=== PATIENT | female | born 1930 | race Caucasian/White ===

== ENCOUNTER 2017-01-05 07:47 | Emergency (ER) | payer MEDICARE, OTHER ==
[~2017-01-05] VITALS: Ht 165.1 cm; Wt 84.0 kg
[2017-01-05 07:57] VITALS: Ht 165.1 cm; Wt 84.0 kg
[2017-01-05] MEDS ORDERED: SOD CHLORIDE 0.9% 500 ML IV STA (08:00)
[2017-01-05] MEDS ORDERED: KETOROLAC 15 MG INJ IV STA (08:00)
[2017-01-05] MEDS ORDERED: LORAZEPAM 2 MG INJ IV ONE (08:00)
--- NOTE | 2017-01-05 09:10 | ERD ---
ER Documentation Chief Complaint Chief Complaint pt gagan MONTAGUE from [facility] with c/o fall out of wheelchair HPI 86-year-old woman brought in by EMS after falling out of her wheelchair [place] at the halfway. She fell onto her low back but denies head or neck injury , no loss of consciousness, no chest pain or shortness of breath. Patient cannot ambulate independently and uses a wheelchair. She was transported here by EMS without further complications. ROS All systems reviewed and are negative except as per history of present illness. Medications Home Meds Active Scripts Alprazolam* (Xanax*) 0.5 Mg Tab, 0.5 MG PO TID for ANXIETY, #12 TAB Prov:VINEET MARCIAL MD 01/05/17 Cephalexin* (Keflex*) 500 Mg Capsule, 500 MG PO QID for 5 Days, #19 CAP Prov:VINEET MARCIAL MD 01/05/17 Reported Medications Lactobacillus Combo No.11 (Probiotic) 1 Each Cap.sprink, 1 CAP PO DAILY, CAP 01/05/17 Losartan Potassium* (Losartan Potassium*) 25 Mg Tablet, 25 MG PO DAILY, TAB 01/05/17 Lidocaine (Lidoderm) 1 Each Adh..patch, 1 EACH TP DAILY 01/05/17 Hydrochlorothiazide* (Hydrochlorothiazide*) 25 Mg Tab, 25 MG PO DAILY, #30 TAB 01/05/17 Cyanocobalamin* (Vitamin B12*) 500 Mcg Tab, 1000 MCG PO DAILY, TAB 01/05/17 Cholecalciferol* (Vitamin D3*) 1,000 Unit Tablet, 1000 UNIT PO DAILY, TAB 01/05/17 Ascorbic Acid* (Vitamin C*) 500 Mg Capsule.sa, 500 MG PO DAILY, CAP 01/05/17 Allergies Allergies: Coded Allergies: Celecoxib (Verified Allergy, Mild, 04/02/08) Rofecoxib (Verified Allergy, Mild, 04/02/08) PMhx/Soc Anxiety, dementia, Alzheimer's disease, arthritis Hx Alcohol Use: No Hx Substance Use: No Hx Tobacco Use: No Smoking Status: Never smoker FmHx Family History: No diabetes Physical Exam Vitals Vital Signs Date Time Temp Pulse Resp B/P Pulse Ox O2 Delivery O2 Flow Rate FiO2 01/05/17 11:00 98.0 82 16 110/93 97 01/05/17 10:35 98.9 84 16 136/70 97 01/05/17 07:57 98.9 82 16 148/89 97 Physical Exam GENERAL: Well-developed, well-nourished, anxious, afebrile HEENT: Dry mucous membranes, pink conjunctiva, no cervical spine tenderness or step-off deformities, no goiter, no jaundice or icterus, extraocular movements intact without pain. No submandibular induration, and no pharyngeal erythema NEURO: Alert and oriented 3, cranial nerves II through XII intact bilaterally, pupils equal round reactive to light, no focal deficits or facial asymmetry, sensation intact distally Strength 5/5 in upper and lower extremities bilaterally CARDIAC: Regular rate and rhythm, no murmurs rubs or gallops LUNGS: Clear bilaterally no wheezing crackles or stridor ABDOMEN: Soft nontender, no guarding, no rigidity, no rebound, no psoas sign no obturator sign. SKIN: Warm and dry to touch, no abrasions, superficial clean appearing dry ulcer to the pilonidal dimple, superficial without discharge EXTREMITIES: No clubbing cyanosis or edema, calves are bilaterally symmetrical, no Homans sign, no popliteal cord sign. Distal pulses equal and bilateral PSYCH: Anxious Result Diagram: 01/05/17 0820 01/05/17 0820 Results 24 hrs Laboratory Tests Test 01/05/17 08:20 White Blood Count 8.510^3/ul Red Blood Count 4.1210^6/ul Hemoglobin 12.4g/dl Hematocrit 39.4% Mean Corpuscular Volume 95.6fl Mean Corpuscular Hemoglobin 30.1pg Mean Corpuscular Hemoglobin Concent 31.5g/dl Red Cell Distribution Width 13.1% Platelet Count 90203^3/UL Mean Platelet Volume 10.7fl Neutrophils % 70.7% Lymphocytes % 20.5% Monocytes % 7.5% Eosinophils % 0.5% Basophils % 0.4% Nucleated Red Blood Cells % 0.0/100WBC Neutrophils # 6.010^3/ul Lymphocytes # 1.710^3/ul Monocytes # 0.610^3/ul Eosinophils # 0.010^3/ul Basophils # 0.010^3/ul Nucleated Red Blood Cells # 0.010^3/ul Urine Color YELLOW Urine Clarity SLIGHTLY CLOUDY Urine pH 5.0 Urine Specific [place] 1.024 Urine Ketones TRACEmg/dL Urine Nitrite NEGATIVEmg/dL Urine Bilirubin NEGATIVEmg/dL Urine Urobilinogen NEGATIVEmg/dL Urine Leukocyte Esterase 1+Mo/ul Urine Microscopic RBC > 182/HPF Urine Microscopic WBC 6/HPF Urine Squamous Epithelial Cells FEW/HPF Urine Bacteria FEW/HPF Urine Mucus FEW/HPF Urine Hemoglobin 3+mg/dL Urine Glucose NEGATIVEmg/dL Urine Total Protein NEGATIVEmg/dl Sodium Level 144mmol/L Potassium Level 4.4mmol/L Chloride Level 109mmol/L Carbon Dioxide Level 23mmol/L Anion Gap 16 Blood Urea Nitrogen 37mg/dl Creatinine 1.69mg/dl Glucose Level 141mg/dl Calcium Level 9.0mg/dl Total Bilirubin 0.2mg/dl Direct Bilirubin 0.00mg/dl Indirect Bilirubin 0.2mg/dl Aspartate Amino Transf (AST/SGOT) 23IU/L Alanine Aminotransferase (ALT/SGPT) 31IU/L Alkaline Phosphatase 63IU/L Total Protein 6.9g/dl Albumin 4.0g/dl Globulin 2.90g/dl Albumin/Globulin Ratio 1.37 Lipase 125U/L Current Medications Medications (Trade) Dose Ordered Sig/Kamila Route PRN Reason Start Time Stop Time Status Last Admin Dose Admin Sodium Chloride (NS) 500 ml @ 500 mls/hr Q1H STAT IV 01/05/17 08:00 01/05/17 08:59 DC 01/05/17 08:20 Ketorolac Tromethamine (Toradol) 15 mg ONCE STAT IV 01/05/17 08:00 01/05/17 08:01 DC 01/05/17 08:22 Lorazepam (Ativan) 1 mg ONCE ONCE IV 01/05/17 08:00 01/05/17 08:01 DC 01/05/17 08:23 Cephalexin (Keflex) 500 mg ONCE ONCE PO 01/05/17 10:00 01/05/17 10:01 DC 01/05/17 10:00 [facility] IV line was established patient was placed on log hauler rhythm strip revealed a sinus rhythm at about 80 bpm with upright P and T waves. Patient was afebrile I administered 500 cc normal saline intravenously for dehydration, Toradol 15 mg IV, lorazepam 1 mg IV for severe anxiety. CBC was normal, electrolytes revealed dehydration with a BUN/creatinine of 37/ 1.7, liver function tests normal, lipase normal, urinalysis negative for infection. CT scan of the brain was performed that was negative for acute bleed mass or shift. Chest X-ray 1V Interpreted by me: Soft Tissue: No acute abnormalities Bones: No acute abnormalities Mediastinum/Cardiac Silhouette/Lungs: No acute abnormalities X-ray Pelvis 1V Interpreted by me: Bones: No fracture Joints: No dislocation Foreign body: None Differential diagnoses considered, included but not limited to acute coronary syndrome, pulmonary embolism, aortic dissection, abdominal aortic aneurysm, sepsis, stroke, meningitis, encephalitis, pneumonia, appendicitis, cholecystitis , bowel obstruction, pyelonephritis, nephrolithiasis, cystitis, as well as metabolic, hematologic, and electrolyte abnormalities. As well as abscess, cellulitis, fractures, and dislocations. Patient feels much better at this time, and vital signs are normal, symptoms have improved. I did give strict instructions to return to the ED if symptoms continue or worsen, patient will otherwise follow-up with primary care physician. Patient understood instructions and agreed to plan. Disclaimer: Inadvertent spelling and grammatical errors are likely due to EHR/ dictation software use and do not reflect on the overall quality of patient care. Also, please note that the electronic time recorded on this note does not necessarily reflect the actual time of the patient encounter. Departure Diagnosis: Primary Impression: Fall with no significant injury Encounter type: initial encounter Qualified Code: W19.XXXA - Fall with no significant injury, initial encounter Additional Impressions: Dehydration Acute anxiety Condition: Good VINEET MARCIAL MD Jan 05, 2017 09:10
--- NOTE | 2017-01-05 09:10 | ERD ---
ER Documentation Chief Complaint Chief Complaint pt gagan MONTAGUE from [facility] with c/o fall out of wheelchair HPI 86-year-old woman brought in by EMS [facility] She fell onto her low back but denies head or neck injury , no loss of consciousness, no chest pain or shortness of breath. Patient cannot ambulate independently and uses a wheelchair. She was transported here by EMS without further complications. ROS All systems reviewed and are negative except as per history of present illness. Medications Home Meds Active Scripts Alprazolam* (Xanax*) 0.5 Mg Tab, 0.5 MG PO TID for ANXIETY, #12 TAB Prov:VINEET MARCIAL MD 01/05/17 Cephalexin* (Keflex*) 500 Mg Capsule, 500 MG PO QID for 5 Days, #19 CAP Prov:VINEET MARCIAL MD 01/05/17 Reported Medications Lactobacillus Combo No.11 (Probiotic) 1 Each Cap.sprink, 1 CAP PO DAILY, CAP 01/05/17 Losartan Potassium* (Losartan Potassium*) 25 Mg Tablet, 25 MG PO DAILY, TAB 01/05/17 Lidocaine (Lidoderm) 1 Each Adh..patch, 1 EACH TP DAILY 01/05/17 Hydrochlorothiazide* (Hydrochlorothiazide*) 25 Mg Tab, 25 MG PO DAILY, #30 TAB 01/05/17 Cyanocobalamin* (Vitamin B12*) 500 Mcg Tab, 1000 MCG PO DAILY, TAB 01/05/17 Cholecalciferol* (Vitamin D3*) 1,000 Unit Tablet, 1000 UNIT PO DAILY, TAB 01/05/17 Ascorbic Acid* (Vitamin C*) 500 Mg Capsule.sa, 500 MG PO DAILY, CAP 01/05/17 Allergies Allergies: Coded Allergies: Celecoxib (Verified Allergy, Mild, 04/02/08) Rofecoxib (Verified Allergy, Mild, 04/02/08) PMhx/Soc Anxiety, dementia, Alzheimer's disease, arthritis Hx Alcohol Use: No Hx Substance Use: No Hx Tobacco Use: No Smoking Status: Never smoker FmHx Family History: No diabetes Physical Exam Vitals Vital Signs Date Time Temp Pulse Resp B/P Pulse Ox O2 Delivery O2 Flow Rate FiO2 01/05/17 11:00 98.0 82 16 110/93 97 01/05/17 10:35 98.9 84 16 136/70 97 01/05/17 07:57 98.9 82 16 148/89 97 Physical Exam GENERAL: Well-developed, well-nourished, anxious, afebrile HEENT: Dry mucous membranes, pink conjunctiva, no cervical spine tenderness or step-off deformities, no goiter, no jaundice or icterus, extraocular movements intact without pain. No submandibular induration, and no pharyngeal erythema NEURO: Alert and oriented 3, cranial nerves II through XII intact bilaterally, pupils equal round reactive to light, no focal deficits or facial asymmetry, sensation intact distally Strength 5/5 in upper and lower extremities bilaterally CARDIAC: Regular rate and rhythm, no murmurs rubs or gallops LUNGS: Clear bilaterally no wheezing crackles or stridor ABDOMEN: Soft nontender, no guarding, no rigidity, no rebound, no psoas sign no obturator sign. SKIN: Warm and dry to touch, no abrasions, superficial clean appearing dry ulcer to the pilonidal dimple, superficial without discharge EXTREMITIES: No clubbing cyanosis or edema, calves are bilaterally symmetrical, no Homans sign, no popliteal cord sign. Distal pulses equal and bilateral PSYCH: Anxious Result Diagram: 01/05/17 0820 01/05/17 0820 Results 24 hrs Laboratory Tests Test 01/05/17 08:20 White Blood Count 8.510^3/ul Red Blood Count 4.1210^6/ul Hemoglobin 12.4g/dl Hematocrit 39.4% Mean Corpuscular Volume 95.6fl Mean Corpuscular Hemoglobin 30.1pg Mean Corpuscular Hemoglobin Concent 31.5g/dl Red Cell Distribution Width 13.1% Platelet Count 38165^3/UL Mean Platelet Volume 10.7fl Neutrophils % 70.7% Lymphocytes % 20.5% Monocytes % 7.5% Eosinophils % 0.5% Basophils % 0.4% Nucleated Red Blood Cells % 0.0/100WBC Neutrophils # 6.010^3/ul Lymphocytes # 1.710^3/ul Monocytes # 0.610^3/ul Eosinophils # 0.010^3/ul Basophils # 0.010^3/ul Nucleated Red Blood Cells # 0.010^3/ul Urine Color YELLOW Urine Clarity SLIGHTLY CLOUDY Urine pH 5.0 Urine Specific [place] 1.024 Urine Ketones TRACEmg/dL Urine Nitrite NEGATIVEmg/dL Urine Bilirubin NEGATIVEmg/dL Urine Urobilinogen NEGATIVEmg/dL Urine Leukocyte Esterase 1+Mo/ul Urine Microscopic RBC > 182/HPF Urine Microscopic WBC 6/HPF Urine Squamous Epithelial Cells FEW/HPF Urine Bacteria FEW/HPF Urine Mucus FEW/HPF Urine Hemoglobin 3+mg/dL Urine Glucose NEGATIVEmg/dL Urine Total Protein NEGATIVEmg/dl Sodium Level 144mmol/L Potassium Level 4.4mmol/L Chloride Level 109mmol/L Carbon Dioxide Level 23mmol/L Anion Gap 16 Blood Urea Nitrogen 37mg/dl Creatinine 1.69mg/dl Glucose Level 141mg/dl Calcium Level 9.0mg/dl Total Bilirubin 0.2mg/dl Direct Bilirubin 0.00mg/dl Indirect Bilirubin 0.2mg/dl Aspartate Amino Transf (AST/SGOT) 23IU/L Alanine Aminotransferase (ALT/SGPT) 31IU/L Alkaline Phosphatase 63IU/L Total Protein 6.9g/dl Albumin 4.0g/dl Globulin 2.90g/dl Albumin/Globulin Ratio 1.37 Lipase 125U/L Current Medications Medications (Trade) Dose Ordered Sig/Kamila Route PRN Reason Start Time Stop Time Status Last Admin Dose Admin Sodium Chloride (NS) 500 ml @ 500 mls/hr Q1H STAT IV 01/05/17 08:00 01/05/17 08:59 DC 01/05/17 08:20 Ketorolac Tromethamine (Toradol) 15 mg ONCE STAT IV 01/05/17 08:00 01/05/17 08:01 DC 01/05/17 08:22 Lorazepam (Ativan) 1 mg ONCE ONCE IV 01/05/17 08:00 01/05/17 08:01 DC 01/05/17 08:23 Cephalexin (Keflex) 500 mg ONCE ONCE PO 01/05/17 10:00 01/05/17 10:01 DC 01/05/17 10:00 [facility] IV line was established patient was placed on case monitor rhythm strip revealed a sinus rhythm at about 80 bpm with upright P and T waves. Patient was afebrile I administered 500 cc normal saline intravenously for dehydration, Toradol 15 mg IV, lorazepam 1 mg IV for severe anxiety. CBC was normal, electrolytes revealed dehydration with a BUN/creatinine of 37/ 1.7, liver function tests normal, lipase normal, urinalysis negative for infection. CT scan of the brain was performed that was negative for acute bleed mass or shift. Chest X-ray 1V Interpreted by me: Soft Tissue: No acute abnormalities Bones: No acute abnormalities Mediastinum/Cardiac Silhouette/Lungs: No acute abnormalities X-ray Pelvis 1V Interpreted by me: Bones: No fracture Joints: No dislocation Foreign body: None Differential diagnoses considered, included but not limited to acute coronary syndrome, pulmonary embolism, aortic dissection, abdominal aortic aneurysm, sepsis, stroke, meningitis, encephalitis, pneumonia, appendicitis, cholecystitis , bowel obstruction, pyelonephritis, nephrolithiasis, cystitis, as well as metabolic, hematologic, and electrolyte abnormalities. As well as abscess, cellulitis, fractures, and dislocations. Patient feels much better at this time, and vital signs are normal, symptoms have improved. I did give strict instructions to return to the ED if symptoms continue or worsen, patient will otherwise follow-up with primary care physician. Patient understood instructions and agreed to plan. Disclaimer: Inadvertent spelling and grammatical errors are likely due to EHR/ dictation software use and do not reflect on the overall quality of patient care. Also, please note that the electronic time recorded on this note does not necessarily reflect the actual time of the patient encounter. Departure Diagnosis: Primary Impression: Fall with no significant injury Encounter type: initial encounter Qualified Code: W19.XXXA - Fall with no significant injury, initial encounter Additional Impressions: Dehydration Acute anxiety Condition: Good VINEET AMRCIAL MD Jan 05, 2017 09:10
--- NOTE | 2017-01-05 09:27 | RADRPT ---
PROCEDURE: Chest 1 views. CLINICAL INDICATION: Chest pain and trauma. TECHNIQUE: AP views of the chest was obtained. COMPARISON: None. FINDINGS: The heart is large. The lungs are hypoinflated. Scattered atelectasis is identified at the lung base s. No consolidations are identified. No pneumothorax is seen. The osseous structures appear gross ly intact. IMPRESSION: Cardiomegaly . No visualized traumatic injury. Hypoinflated lungs with atelectasis at the lung bases. If there is high clinical suspicion for traumatic injury, further evaluation with CT should be consi dered. RPTAT: AA .Tera Reed MD, Date Time Electronically viewed and signed by .Tera Reed MD, on 01/05/2017 09:27 .P/
--- NOTE | 2017-01-05 09:28 | RADRPT ---
PROCEDURE: XR Pelvis 1 View. CLINICAL INDICATION: Pelvic pain and trauma. TECHNIQUE: Single AP view of the pelvis. COMPARISON: No prior studies are available for comparison. FINDINGS: The osseous structures are intact. No destructive bony lesions are observed. Mild narrowing of bila teral hip joints is identified. Degenerative changes are seen in the lower lumbar spine and pubic sy mphysis. A few heterotopic soft tissue calcifications are seen over the right pelvis. IMPRESSION: No visualized traumatic injury. Mild osteoarthritis of both hips. Degenerative changes in the lower lumbar spine and pubic symphysis. If there is high clinical suspicion for traumatic injury, further evaluation with CT should be consi dered. RPTAT: AA .Tera Reed MD, Date Time Electronically viewed and signed by .Tera Reed MD, MD on 01/05/2017 09:28 .P/
--- NOTE | 2017-01-05 09:30 | RADRPT ---
PROCEDURE: CT Brain without contrast. CLINICAL INDICATION: Possible intracranial hemorrhage. TECHNIQUE: A CT of the brain was performed on a GE 64-slice CT scanner utilizing axial imaging fro m the skull base through the vertex without intravenous contrast. Multiplanar reformatted images wer e made. The CTDIvol is 45.01 mGy and the DLP is 720.23 mGycm. One or more of the following dose reduction techniques were used: - Automated exposure control. - Adjustment of the mA and/or kV according to patient size. - Use of iterative reconstruction technique. COMPARISON: None. FINDINGS: There is image degradation secondary to patient motion. There is no intracranial hemorrhage, mass effect, or midline shift. No extra-axial fluid collection is seen. Moderate generalized parenchymal volume loss is identified with compensatory ventricular and sulcal enlargement. Mild decreased attenuation is seen in the periventricular and deep white ma tter, compatible with microvascular ischemic disease. The suarez white matter differentiation is well preserved with no acute infarct detected. The osseous structures and visualized paranasal sinuses a re unremarkable. IMPRESSION: 1. No evidence of acute intracranial pathology. 2. Moderate generalized parenchymal volume loss. 3. 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 RPTAT: HRSR Physician Lacey Date Time Electronically viewed and signed by Physician Lacey on 01/05/2017 09:29 RR/
[2017-01-05] MEDS ORDERED: CEPHALEXIN 500 MG CAP PO ONE (10:00)
[2017-01-05] MEDS ORDERED: ALPR0.5T PO (10:01)
[2017-01-05] MEDS ORDERED: CEPH-443 PO (10:01)
[2017-01-05] MEDS ORDERED: ASCO500C7 PO (10:33)
[2017-01-05] MEDS ORDERED: CHOL100062 PO (10:33)
[2017-01-05] MEDS ORDERED: CYAN500T46 PO (10:33)
[2017-01-05] MEDS ORDERED: HYDR25TA6 PO (10:34)
[2017-01-05] MEDS ORDERED: LIDO700A10 TP (10:35)
[2017-01-05] MEDS ORDERED: LOSA25TA5 PO (10:36)
[2017-01-05] MEDS ORDERED: LACT1CAP56 PO (10:36)
[2017-01-05 11:00] VITALS: BP 110/93; PULSE 82; RESP 16; TEMP 98
== END 2017-01-05 11:00 | disposition home or self-care (01) ==
LOC: E/R 07:47
DX: S39.92XA Unspecified injury of lower back, initial encounter (principal); E86.0 Dehydration; F41.9 Anxiety disorder, unspecified; G30.9 Alzheimer's disease, unspecified; R51 Headache; W07.XXXA Fall from chair, initial encounter; Y92.9 Unspecified place or not applicable
CPT/HCPCS: 36415; 70450; 71010; 72170; 80053; 81001; 83690; 85025; 87086; 96374; 96375; 99285; J1885; J2060; J7040; P9612

== ENCOUNTER 2018-05-22 12:17 | Inpatient (IN) | payer MEDICARE, OTHER, BC ==
[~2018-05-22] VITALS: Ht 175.3 cm; Wt 90.9 kg
[~2018-05-22 12:17] MED LIST: ALPR0.5T PO; ASCO500C7 PO; CEPH-443 PO; CHOL100062 PO; CYAN500T46 PO; HYDR25TA6 PO; LACT1CAP56 PO; LIDO700A29 TP; LOSA25TA12 PO
--- NOTE | 2018-05-22 12:36 | ERD ---
ER Documentation Chief Complaint Chief Complaint Rectal bleeding HPI The patient is a 87-year-old female, presenting to the ER because of rectal bleeding for the last 2-1/2 weeks, with bright red blood. She had to strain when she moved her bowel, her history is limited due to her acute anxiety. She denies syncope, near syncope, neck pain, chest pain, dyspnea, abdominal pain, vomiting, dysuria. She does not smoke nor drink Past medical history: Hypertension, anxiety Past surgical history: None ROS All systems reviewed and are negative except as per history of present illness. Medications Home Meds Reported Medications Cyanocobalamin (Vitamin B-12) (Vitamin B-12) 1,000 Mcg Capsule, 1000 MCG PO DAILY, CAP 05/22/18 Ascorbic Acid (Vitamin C) 500 Mg Tab, 500 MG PO DAILY, TAB 05/22/18 Cholecalciferol* (Vitamin D3*) 1,000 Unit Tablet, 1000 UNIT PO DAILY, TAB 05/22/18 Lidocaine (Lidocaine) 1 Each Adh..patch, 1 EACH TP DAILY 05/22/18 Losartan Potassium* (Losartan Potassium*) 50 Mg Tablet, 50 MG PO DAILY, TAB 05/22/18 Lorazepam* (Lorazepam*) 0.5 Mg Tablet, 0.5 MG PO TID PRN for ANXIETY, TAB 05/22/18 Hydrochlorothiazide* (Hydrochlorothiazide*) 25 Mg Tab, 25 MG PO DAILY, #30 TAB 05/22/18 Discontinued Reported Medications Lactobacillus Combo No.11 (Probiotic) 1 Each Cap.sprink, 1 CAP PO DAILY, CAP 01/05/17 Losartan Potassium* (Losartan Potassium*) 25 Mg Tablet, 25 MG PO DAILY, TAB 01/05/17 Lidocaine (Lidoderm) 1 Each Adh..patch, 1 EACH TP DAILY 01/05/17 Hydrochlorothiazide* (Hydrochlorothiazide*) 25 Mg Tab, 25 MG PO DAILY, #30 TAB 01/05/17 Cyanocobalamin* (Vitamin B12*) 500 Mcg Tab, 1000 MCG PO DAILY, TAB 01/05/17 Cholecalciferol* (Vitamin D3*) 1,000 Unit Tablet, 1000 UNIT PO DAILY, TAB 01/05/17 Ascorbic Acid* (Vitamin C*) 500 Mg Capsule.sa, 500 MG PO DAILY, CAP 01/05/17 Discontinued Scripts Alprazolam* (Xanax*) 0.5 Mg Tab, 0.5 MG PO TID for ANXIETY, #12 TAB Prov:VINEET MARCIAL MD 01/05/17 Cephalexin* (Keflex*) 500 Mg Capsule, 500 MG PO QID for 5 Days, #19 CAP Prov:VINEET MARCIAL MD 01/05/17 Allergies Allergies: Coded Allergies: celecoxib (Verified Allergy, Mild, 05/22/18) rofecoxib (Verified Allergy, Mild, 05/22/18) PMhx/Soc Hx Alcohol Use: No Hx Substance Use: No Hx Tobacco Use: No Physical Exam Vitals Vital Signs Date Temp Pulse Resp B/P (MAP) Pulse Ox O2 O2 Flow FiO2 Time Delivery Rate 05/22/18 112 30 121/49 100 Room Air 16:10 (73) 112 05/22/18 98.4 70 18 101/44 98 Room Air 14:30 (63) 05/22/18 103 22 137/72 99 Room Air 13:14 (93) 05/22/18 98.4 114 18 134/70 99 12:41 (91) Physical Exam Const: No acute distress. Head: Atraumatic. Eyes: Normal Conjunctiva. ENT: Normal External Ears, Nose and Mouth. Neck: Full range of motion. No meningismus. Resp: Clear to auscultation bilaterally. Cardio: Regular rate and rhythm. Abd: Soft, non distended, normal bowel sounds, non tender. Skin: No petechiae or rashes. Back: No midline or flank tenderness. Ext: No cyanosis, or edema. Neur: Awake and alert. No focal deficit Psych: Normal Mood and Affect. Rectal: There is an opening near the rectum with purulent/blood tinged discharge Result Diagram: 05/22/18 1313 05/22/18 1313 Results 24 hrs Laboratory Tests Test 05/22/18 13:13 White Blood Count 11.1 10^3/ul Red Blood Count 4.09 10^6/ul Hemoglobin 12.2 g/dl Hematocrit 38.4 % Mean Corpuscular Volume 93.9 fl Mean Corpuscular Hemoglobin 29.8 pg Mean Corpuscular Hemoglobin Concent 31.8 g/dl Red Cell Distribution Width 12.5 % Platelet Count 191 10^3/UL Mean Platelet Volume 10.2 fl Immature Granulocytes % 0.500 % Neutrophils % 77.5 % Lymphocytes % 13.6 % Monocytes % 7.5 % Eosinophils % 0.5 % Basophils % 0.4 % Nucleated Red Blood Cells % 0.0 /100WBC Immature Granulocytes # 0.060 10^3/ul Neutrophils # 8.6 10^3/ul Lymphocytes # 1.5 10^3/ul Monocytes # 0.8 10^3/ul Eosinophils # 0.1 10^3/ul Basophils # 0.0 10^3/ul Nucleated Red Blood Cells # 0.0 10^3/ul Prothrombin Time 13.1 Sec Prothrombin Time Ratio 1.0 INR International Normalized Ratio 0.98 Activated Partial Thromboplast Time 25.9 Sec Sodium Level 143 mmol/L Potassium Level 4.2 mmol/L Chloride Level 104 mmol/L Carbon Dioxide Level 28 mmol/L Anion Gap 11 Blood Urea Nitrogen 41 mg/dl Creatinine 1.68 mg/dl Est Glomerular Filtrat Rate mL/min mL/min Glucose Level 134 mg/dl Calcium Level 9.8 mg/dl Total Bilirubin 0.3 mg/dl Direct Bilirubin 0.00 mg/dl Indirect Bilirubin 0.3 mg/dl Aspartate Amino Transf (AST/SGOT) 14 IU/L Alanine Aminotransferase (ALT/SGPT) 14 IU/L Alkaline Phosphatase 70 IU/L Troponin I < 0.012 ng/ml Total Protein 6.7 g/dl Albumin 3.8 g/dl Globulin 2.90 g/dl Albumin/Globulin Ratio 1.31 Current Medications Medications Dose Sig/Kamila Start Time Status Last (Trade) Ordered Route PRN Stop Time Admin Dose Reason Admin Alprazolam 0.5 mg ONCE ONCE 05/22/18 DC 05/22/18 (Xanax) PO 13:30 13:17 05/22/18 13:31 Piperacillin 100 ml @ ONCE ONCE 05/22/18 DC Sod/ 200 mls/hr IVPB 16:30 Tazobactam 05/22/18 16:59 Sod Procedures/MDM [place] [id number] Radiology Main Line: [phone] DIAGNOSTIC IMAGING REPORT Patient: ZACK COLORADO : 1930 Age: 87 Sex: F MR #: [id number] DOS: 05/22/18 1254 Ordering MD: NICKO GREGG MD Location: E/R Room/Bed: PROCEDURE: CT abdomen and pelvis without contrast. CLINICAL INDICATION: Rectal bleeding TECHNIQUE: CT scan of the abdomen and pelvis without contrast was performed and is reconstructed at 2.5 mm contiguous axial intervals from the dome of the diaphragm to the inferior pubic rami.. The patient was scanned without intravenous contrast. Sagittal and coronal reformatted images were obtained from the axial source images. The calculated radiation dose measures 1186 mGy centimeters. The CTDI measures 20 mGy. Individualized dose optimization technique was used for the performance of this exam. This included 1. Automated exposure control. 2. Adjustment of the mA and / or kV according to the patient's size. 3. Use of iterative reconstructed technique. COMPARISON: None. FINDINGS: The lung bases are clear of any infiltrate or nodule. No effusion is seen. There are coronary artery calcifications. The liver is of normal size, contour and attenuation with no mass or ductal dilatation. No gallstones are visualized. No splenic, adrenal or pancreatic abnormalities present. Kidneys are of normal size. No hydronephrosis, calculus or solid masses seen. Bilateral parenchymal renal cysts are present, the largest of which is on the lateral mid pole of the right kidney measuring 3.6 cm in diameter. A 10 mm hyperdense cyst is seen in the upper pole of the right kidney. Ureters are of normal course and caliber with no stone. No bladder mass or stone is present. Atrophic postmenopausal uterus is normal. No adnexal masses present. There is no aneurysm. No adenopathy is present. No bowel mass or obstruction is present. The appendix is normal. There is scattered colonic diverticula. No phlegmon, ascites or pneumoperitoneum is visualized. There is degenerative disc disease in the lumbar spine. No fracture is noted and no lytic or blastic lesions are identified. IMPRESSION: No bowel mass or obstruction is visualized. Diverticulosis. No evidence of diverticulitis, appendicitis or urolithiasis. Cortical renal cysts. Hyperdense cyst upper pole right kidney. No further workup required. Degenerative disease lumbar spine. Vascular calcifications. .Milton Neil MD, MD Date Time Electronically viewed and signed by .Milton Neil MD, on 05/22/2018 14:35 .A/ CC: NICKO GREGG MD [phone] MEDICAL MAKING DECISION: The patient is an 87-year-old female, presenting with acute hematochezia, suspected perirectal abscess/fistula. She was treated empirically with Zosyn IV, Xanax 0.5 mg p.o. for acute anxiety with good response. The differential diagnoses considered include but are not limited to rectal cellulitis/abscess/fistula , carcinoma, polyp, hemorrhoid, fissure, diverticulosis, angiodysplasia. 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 I discussed the patient with the hospitalist Dr Kowalski at 4:30 pm who was made aware of the lab, the treatment, the patient condition. The patient is admitted to [facility] Disclaimer: Inadvertent spelling and grammatical errors are likely due to EHR/dictation software use and do not reflect on the overall quality of patient care. Also, please note that the electronic time recorded on this note does not necessarily reflect the actual time of the patient encounter. NICKO GREGG MD May 22, 2018 12:36
[2018-05-22 12:41] VITALS: Ht 175.3 cm; Wt 90.9 kg
[2018-05-22] MEDS ORDERED: ALPRAZOLAM 0.25 MG TAB PO ONE (13:30)
[2018-05-22] MEDS ORDERED: HYDR25TA6 PO (16:05)
[2018-05-22] MEDS ORDERED: LOSA50TA14 PO (16:06)
[2018-05-22] MEDS ORDERED: LORA0.5T PO (16:06)
[2018-05-22] MEDS ORDERED: LIDO700A45 TP (16:07)
[2018-05-22] MEDS ORDERED: ASC500 PO (16:08)
[2018-05-22] MEDS ORDERED: CHOL100062 PO (16:08)
[2018-05-22] MEDS ORDERED: CYAN-23 PO (16:09)
[2018-05-22] MEDS ORDERED: PIPER-TAZO 3.375 GM IV (PMX) 100 ML IVPB ONE (16:30)
--- NOTE | 2018-05-22 19:20 | HP ---
Date/Time of Note Date/Time of Note DATE: 05/22/18 TIME: 19:16 Assessment/Plan VTE Prophylaxis SCD contraindicated: low risk/ambulating Pharmacological prophylaxis: NA/contraindicated Pharm contraindication: low risk/ambulating Lines/Catheters IV Catheter Type (from Nrsg): Saline Lock Assessment/Plan Hospital Course CC gi bleed MARY'S IGLOO 87yr F w 2wks gi bleed/ straining. No known aggravating or relieving factors. Lives alone I believe with a part-time caregiver. Poor income etc. Denies any alcohol or nonsteroidals no dizziness dyspnea or syncope ER vss/ st/sr; perirectal bleeding noted PMH HTN Justin? Constipation? PSH Back surgery Foot surgery FH non contributory SH no active tobacco, etoh part-time caregiver PE no pallor/ jvd reg s1s2 no mrg ctab bs decreased; nt nd; no r/r/g no edema A/P 1. GI Bleed, stable transfuse if less than 7. 2. Sveta- rectal Fistula stable outpatient colorectal surgery referral 3. Htn 4. Ckd 5. Failure to thrive, may need further caregiver support/transportation assista nce. Consider moving into [id number] or sniff. Result Diagram: 05/22/18 1313 05/22/18 1313 Results 24hrs Laboratory Tests Test 05/22/18 13:13 White Blood Count 11.1 #H Red Blood Count 4.09 L Hemoglobin 12.2 Hematocrit 38.4 Mean Corpuscular Volume 93.9 Mean Corpuscular Hemoglobin 29.8 Mean Corpuscular Hemoglobin Concent 31.8 L Red Cell Distribution Width 12.5 Platelet Count 191 Mean Platelet Volume 10.2 Immature Granulocytes % 0.500 H Neutrophils % 77.5 H Lymphocytes % 13.6 L Monocytes % 7.5 Eosinophils % 0.5 Basophils % 0.4 Nucleated Red Blood Cells % 0.0 Immature Granulocytes # 0.060 H Neutrophils # 8.6 H Lymphocytes # 1.5 Monocytes # 0.8 Eosinophils # 0.1 Basophils # 0.0 Nucleated Red Blood Cells # 0.0 Prothrombin Time 13.1 Prothrombin Time Ratio 1.0 INR International Normalized Ratio 0.98 Activated Partial Thromboplast Time 25.9 Sodium Level 143 Potassium Level 4.2 Chloride Level 104 Carbon Dioxide Level 28 Anion Gap 11 Blood Urea Nitrogen 41 H Creatinine 1.68 H Est Glomerular Filtrat Rate mL/min Glucose Level 134 Calcium Level 9.8 Total Bilirubin 0.3 Direct Bilirubin 0.00 Indirect Bilirubin 0.3 Aspartate Amino Transf (AST/SGOT) 14 L Alanine Aminotransferase (ALT/SGPT) 14 Alkaline Phosphatase 70 Troponin I < 0.012 Total Protein 6.7 Albumin 3.8 Globulin 2.90 Albumin/Globulin Ratio 1.31 HPI/ROS Admit Date/Time Admit Date/Time May 22, 2018 at 16:53 PMH/Family/Social Past Medical History Medications Current Medications Lidocaine (Lidoderm) 5 patch DAILY TD ; Start 05/22/18 at 19:30; Status UNV Sodium Chloride 1,000 ml @ 100 mls/hr Q10H IV ; Start 05/22/18 at 19:04 IV Flush (NS 3 ml) 3 ml PER PROTOCOL IV ; Start 05/22/18 at 19:30 Ondansetron HCl (Zofran Inj) 4 mg Q6H PRN IV NAUSEA/VOMITING; Start 05/22/18 at 19:30 Acetaminophen (Tylenol Tab) 650 mg Q6H PRN PO .PAIN 1-3 OR TEMP; Start 05/22/18 at 19:30 Acetaminophen (Tylenol Supp) 650 mg Q6H PRN [place] .PAIN 1-3 OR TEMP; Start 05/22/18 at 19:30 Acetaminophen/ Hydrocodone Bitart ([place] (5/325)) 1 tab Q6H PRN PO .MOD PAIN 4- 6; Start 05/22/18 at 19:30; Status UNV Morphine Sulfate (morphine) 2 mg Q4H PRN IV .SEVERE PAIN 7-10; Start 05/22/18 at 19:30; Status UNV Docusate Sodium (Colace) 100 mg Q12H PRN PO .CONSTIPATION; Start 05/22/18 at 19:30 Bisacodyl (Dulcolax) 5 mg DAILY PRN PO .CONSTIPATION; Start 05/22/18 at 19:30 Bisacodyl (Dulcolax Supp) 10 mg DAILY PRN [place] .CONSTIPATION; Start 05/22/18 at 19:30 Famotidine (Pepcid Iv) 20 mg Q12 IV ; Start 05/22/18 at 21:00; Status UNV Coded Allergies: celecoxib (Verified Allergy, Mild, 05/22/18) rofecoxib (Verified Allergy, Mild, 05/22/18) Social History Smoking Status: Never smoker Exam/Review of Systems Vital Signs Vitals Vital Signs Date Temp Pulse Resp B/P (MAP) Pulse Ox O2 O2 Flow FiO2 Time Delivery Rate 05/22/18 87 24 139/48 99 Room Air 18:09 (78) 05/22/18 98.4 14:30 PAWEL RAI MD May 22, 2018 19:20
[2018-05-22] MEDS ORDERED: ONDANSETRON 4 MG INJ IV PRN (19:30)
[2018-05-22] MEDS ORDERED: morphine 2 MG INJ IV PRN (19:30)
[2018-05-22] MEDS ORDERED: DOCUSATE SODIUM 100 MG CAP PO PRN ×2 (19:30)
[2018-05-22] MEDS ORDERED: HYDROCODONE/APAP (5/325) TAB PO PRN (19:30)
[2018-05-22] MEDS ORDERED: BISACODYL (EC) 5 MG TAB PO PRN (19:30)
[2018-05-22] MEDS ORDERED: ENALAPRILAT 1.25 MG INJ IV PRN (19:30)
[2018-05-22] MEDS ORDERED: LORAZEPAM 2 MG INJ IV PRN (19:30)
[2018-05-22] MEDS ORDERED: SOD CHLORIDE 0.9% 500 ML IV ONE (19:30)
[2018-05-22] MEDS ORDERED: ACETAMINOPHEN 650 MG SUPP PR PRN (19:30)
[2018-05-22] MEDS ORDERED: NACL 0.9% 3 ML SYG IV SCH (19:30)
[2018-05-22] MEDS ORDERED: BISACODYL 10 MG SUPP PR PRN (19:30)
[2018-05-22] MEDS ORDERED: HYDROCORTISONE 25 MG SUPP PR PRN (19:30)
[2018-05-22] MEDS ORDERED: ACETAMINOPHEN 325 MG TAB PO PRN (19:30)
--- NOTE | 2018-05-22 20:17 | CONS ---
Assessment/Plan Assessment/Plan Hospital Course (Demo Recall) Patient was just admitted to the emergency room and surgical consultation was obtained Problems: (1) Perirectal fistula Status: Chronic (2) Hematochezia Status: Chronic Assessment/Plan (Daily) History of rectal bleeding currently there is no evidence of bleeding there is a possibility of perirectal fistula however I do not see any evidence of infection. Patient will need elective workup including GI consult possible colonoscopy and referral to colorectal surgeon as needed. CC: PAWEL RAI MD ; Consultation Date/Type/Reason Admit Date/Time May 22, 2018 at 16:53 Date of Consultation: May 22, 2018 Type of Consult Surgical Reason for Consultation Rectal bleeding possible rectal fistula Requesting Provider: PAWEL RAI MD Date/Time of Note DATE: 05/22/18 TIME: 20:08 Hx of Present Illness Patient was admitted through emergency room with rectal bleeding which was noticed by her caregiver. Patient is 87-year-old female with multiple medical problems, dementia, was examined in the emergency room and admitted to the hospital and surgical consultation was obtained to rule out perirectal fistula. Patient by herself does not remember and cannot recall any episode of rectal bleeding. Her caregiver is unavailable currently. The patient by himself is a very poor historian however she does remember the surgery she had on her spine and extremities. Patient denies constipation, she mentioned that she has regular bowel movements. Patient is afebrile she is hemodynamically stable. Subjective hx not possible: other (Patient is poor historian and is difficult to obtain the subjective review of symptoms.) Constitutional: no complaints Eyes: no complaints ENT: no complaints Respiratory: no complaints Cardiovascular: no complaints Gastrointestinal: other (Perirectal bleeding) Genitourinary: other (Incontinence) Musculoskeletal: other (Weakness and pain in both lower extremities more than the left side) Skin: no complaints Neurologic: focal-weakness Endocrine: no complaints Lymphatic: no complaints Psychological: no complaints, confusion Immunologic: no complaints Past Medical History Medical History: no pertinent history Home Meds Reported Medications Cyanocobalamin (Vitamin B-12) (Vitamin B-12) 1,000 Mcg Capsule, 1000 MCG PO DAILY, CAP 05/22/18 Ascorbic Acid (Vitamin C) 500 Mg Tab, 500 MG PO DAILY, TAB 05/22/18 Cholecalciferol* (Vitamin D3*) 1,000 Unit Tablet, 1000 UNIT PO DAILY, TAB 05/22/18 Lidocaine (Lidocaine) 1 Each Adh..patch, 1 EACH TP DAILY 05/22/18 Losartan Potassium* (Losartan Potassium*) 50 Mg Tablet, 50 MG PO DAILY, TAB 05/22/18 Lorazepam* (Lorazepam*) 0.5 Mg Tablet, 0.5 MG PO TID PRN for ANXIETY, TAB 05/22/18 Hydrochlorothiazide* (Hydrochlorothiazide*) 25 Mg Tab, 25 MG PO DAILY, #30 TAB 05/22/18 Discontinued Reported Medications Lactobacillus Combo No.11 (Probiotic) 1 Each Cap.sprink, 1 CAP PO DAILY, CAP 01/05/17 Losartan Potassium* (Losartan Potassium*) 25 Mg Tablet, 25 MG PO DAILY, TAB 01/05/17 Lidocaine (Lidoderm) 1 Each Adh..patch, 1 EACH TP DAILY 01/05/17 Hydrochlorothiazide* (Hydrochlorothiazide*) 25 Mg Tab, 25 MG PO DAILY, #30 TAB 01/05/17 Cyanocobalamin* (Vitamin B12*) 500 Mcg Tab, 1000 MCG PO DAILY, TAB 01/05/17 Cholecalciferol* (Vitamin D3*) 1,000 Unit Tablet, 1000 UNIT PO DAILY, TAB 01/05/17 Ascorbic Acid* (Vitamin C*) 500 Mg Capsule.sa, 500 MG PO DAILY, CAP 01/05/17 Discontinued Scripts Alprazolam* (Xanax*) 0.5 Mg Tab, 0.5 MG PO TID for ANXIETY, #12 TAB Prov:VINEET MARCIAL MD 01/05/17 Cephalexin* (Keflex*) 500 Mg Capsule, 500 MG PO QID for 5 Days, #19 CAP Prov:VINEET MARCIAL MD 01/05/17 Medications Current Medications Lidocaine (Lidoderm) 5 patch DAILY TD ; Start 05/22/18 at 19:30; Status UNV Sodium Chloride 1,000 ml @ 100 mls/hr Q10H IV ; Start 05/22/18 at 19:04 IV Flush (NS 3 ml) 3 ml PER PROTOCOL IV ; Start 05/22/18 at 19:30 Ondansetron HCl (Zofran Inj) 4 mg Q6H PRN IV NAUSEA/VOMITING; Start 05/22/18 at 19:30 Acetaminophen (Tylenol Tab) 650 mg Q6H PRN PO .PAIN 1-3 OR TEMP; Start 05/22/18 at 19:30 Acetaminophen (Tylenol Supp) 650 mg Q6H PRN [place] .PAIN 1-3 OR TEMP; Start 05/22/18 at 19:30 Acetaminophen/ Hydrocodone Bitart ([place] (5/325)) 1 tab Q6H PRN PO .MOD PAIN 4- 6; Start 05/22/18 at 19:30 Morphine Sulfate (morphine) 2 mg Q4H PRN IV .SEVERE PAIN 7-10; Start 05/22/18 at 19:30 Bisacodyl (Dulcolax) 5 mg DAILY PRN PO .CONSTIPATION; Start 05/22/18 at 19:30 Bisacodyl (Dulcolax Supp) 10 mg DAILY PRN [place] .CONSTIPATION; Start 05/22/18 at 19:30 Famotidine (Pepcid Iv) 20 mg DAILY IV ; Start 05/22/18 at 21:00 Sodium Chloride 500 ml @ 500 mls/hr Q1H ONCE IV ; Start 05/22/18 at 19:30; Stop 05/22/18 at 20:29 Lorazepam (Ativan) 1 mg Q8H PRN IV AGITATION/ANXIETY; Start 05/22/18 at 19:30 Enalaprilat (Vasotec Iv) 0.625 mg Q6H PRN IV ELEVATED SYSTOLIC BP; Start 05/22/18 at 19:30 Docusate Sodium (Colace) 200 mg BID PRN PO CONSTIPATION; Start 05/22/18 at 19:30 Hydrocortisone (Anusol-Hc Supp) 25 mg TID PRN [place] HEMORROID PAIN/ITCHING; Start 05/22/18 at 19:30 Allergies: Coded Allergies: celecoxib (Verified Allergy, Mild, 05/22/18) rofecoxib (Verified Allergy, Mild, 05/22/18) Past Surgical History Past Surgical Hx: other (Lumbar spinal fusion and surgery in the extremities. Patient denies abdominal or rectal surgery.) Family History Significant Family History: no pertinent family hx Social History Alcohol Use: none Smoking Status: Never smoker Other Social History Patient lives in her apartment with her caregiver Exam/Review of Systems Exam Vitals Vital Signs Date Temp Pulse Resp B/P (MAP) Pulse Ox O2 O2 Flow FiO2 Time Delivery Rate 05/22/18 87 24 139/48 99 Room Air 18:09 (78) 05/22/18 98.4 14:30 Constitutional: alert, distress, frail, obese Psych: confusion Head: normocephalic ENMT: nl external ears & nose Neck: supple Respiratory: clear to auscultation Cardiovascular: regular rate and rhythm, nl pulses Gastrointestinal: soft, nl liver, spleen, non-tender, other (Rectal exam showed soft stool normal color no evidence of blood. There is a possible perirectal fistula with clear discharge in the posterior right side of the anus) Results Result Diagram: 05/22/18 1313 05/22/18 1313 Results 24hrs Laboratory Tests Test 05/22/18 13:13 White Blood Count 11.1 #H Red Blood Count 4.09 L Hemoglobin 12.2 Hematocrit 38.4 Mean Corpuscular Volume 93.9 Mean Corpuscular Hemoglobin 29.8 Mean Corpuscular Hemoglobin Concent 31.8 L Red Cell Distribution Width 12.5 Platelet Count 191 Mean Platelet Volume 10.2 Immature Granulocytes % 0.500 H Neutrophils % 77.5 H Lymphocytes % 13.6 L Monocytes % 7.5 Eosinophils % 0.5 Basophils % 0.4 Nucleated Red Blood Cells % 0.0 Immature Granulocytes # 0.060 H Neutrophils # 8.6 H Lymphocytes # 1.5 Monocytes # 0.8 Eosinophils # 0.1 Basophils # 0.0 Nucleated Red Blood Cells # 0.0 Prothrombin Time 13.1 Prothrombin Time Ratio 1.0 INR International Normalized Ratio 0.98 Activated Partial Thromboplast Time 25.9 Sodium Level 143 Potassium Level 4.2 Chloride Level 104 Carbon Dioxide Level 28 Anion Gap 11 Blood Urea Nitrogen 41 H Creatinine 1.68 H Est Glomerular Filtrat Rate mL/min Glucose Level 134 Calcium Level 9.8 Total Bilirubin 0.3 Direct Bilirubin 0.00 Indirect Bilirubin 0.3 Aspartate Amino Transf (AST/SGOT) 14 L Alanine Aminotransferase (ALT/SGPT) 14 Alkaline Phosphatase 70 Troponin I < 0.012 Total Protein 6.7 Albumin 3.8 Globulin 2.90 Albumin/Globulin Ratio 1.31 Medications Medication Current Medications Lidocaine (Lidoderm) 5 patch DAILY TD ; Start 05/22/18 at 19:30; Status UNV Sodium Chloride 1,000 ml @ 100 mls/hr Q10H IV ; Start 05/22/18 at 19:04 IV Flush (NS 3 ml) 3 ml PER PROTOCOL IV ; Start 05/22/18 at 19:30 Ondansetron HCl (Zofran Inj) 4 mg Q6H PRN IV NAUSEA/VOMITING; Start 05/22/18 at 19:30 Acetaminophen (Tylenol Tab) 650 mg Q6H PRN PO .PAIN 1-3 OR TEMP; Start 05/22/18 at 19:30 Acetaminophen (Tylenol Supp) 650 mg Q6H PRN [place] .PAIN 1-3 OR TEMP; Start 05/22/18 at 19:30 Acetaminophen/ Hydrocodone Bitart ([place] (5/325)) 1 tab Q6H PRN PO .MOD PAIN 4- 6; Start 05/22/18 at 19:30 Morphine Sulfate (morphine) 2 mg Q4H PRN IV .SEVERE PAIN 7-10; Start 05/22/18 at 19:30 Bisacodyl (Dulcolax) 5 mg DAILY PRN PO .CONSTIPATION; Start 05/22/18 at 19:30 Bisacodyl (Dulcolax Supp) 10 mg DAILY PRN [place] .CONSTIPATION; Start 05/22/18 at 19:30 Famotidine (Pepcid Iv) 20 mg DAILY IV ; Start 05/22/18 at 21:00 Sodium Chloride 500 ml @ 500 mls/hr Q1H ONCE IV ; Start 05/22/18 at 19:30; Stop 05/22/18 at 20:29 Lorazepam (Ativan) 1 mg Q8H PRN IV AGITATION/ANXIETY; Start 05/22/18 at 19:30 Enalaprilat (Vasotec Iv) 0.625 mg Q6H PRN IV ELEVATED SYSTOLIC BP; Start 05/22/18 at 19:30 Docusate Sodium (Colace) 200 mg BID PRN PO CONSTIPATION; Start 05/22/18 at 19:30 Hydrocortisone (Anusol-Hc Supp) 25 mg TID PRN [place] HEMORROID PAIN/ITCHING; Start 05/22/18 at 19:30 YANI GAO MD May 22, 2018 20:17
[2018-05-22 20:38] VITALS: BP 153/61; PULSE 77; RESP 18
--- NOTE | 2018-05-22 20:39 | PDOCDIS ---
Discharge Instructions CONDITION [id number] Patient Condition: Exddr2d Stable HOME CARE INSTRUCTIONS: [id number] Diet Instructions: [id number] TY: [id number] Activity Restrictions: [id number] Slowly Increase Activity Avoid heavy lifting Do not Drive FOLLOW UP/APPOINTMENTS Follow-up Plan appt primary 1wk GI Dr Chelsea Kaur 1wk OTHER ORDERS: Other Orders: take colace/ dulcolax/ miralax to avoid constipation. SCHOOL/WORK RELEASE May return to School/Work on: May 22, 2018 PAWEL RAI MD May 22, 2018 20:39
[2018-05-22] MEDS ORDERED: ACET325T33 PO (20:40)
[2018-05-22] MEDS ORDERED: HYDR25SU23 PR (20:40)
[2018-05-22] MEDS ORDERED: DOCU-144 PO (20:40)
[2018-05-22] MEDS: LIDOCAINE 5% PATCH TD SCH (21:41)
[2018-05-22] MEDS: FAMOTIDINE 20 MG INJ IV SCH (21:41)
[2018-05-22] MEDS: SOD CHLORIDE 0.9% 1,000 ML IV SCH (21:49)
[2018-05-23] MEDS ORDERED: ZOLPIDEM 5 MG TAB PO PRN (01:30)
[2018-05-23 02:23] VITALS: BP 138/62; PULSE 108; RESP 18
[2018-05-23 02:26] VITALS: BP 112/53; PULSE 95; RESP 18
[2018-05-23] MEDS: SOD CHLORIDE 0.9% 1,000 ML IV SCH ×2 (05:04→12:04)
[2018-05-23] MEDS ORDERED: PENDING SANTYL ORDER FOR WOUND CARE XX PRN (06:30)
[2018-05-23 07:31] VITALS: BP 122/59; PULSE 77; RESP 18
[2018-05-23] MEDS: FAMOTIDINE 20 MG INJ IV SCH (09:36)
[2018-05-23] MEDS: LIDOCAINE 5% PATCH TD SCH (09:37)
--- NOTE | 2018-05-23 13:46 | DS ---
Date/Time of Note Date/Time of Note DATE: 05/23/18 TIME: 13:43 Discharge Summary Admission/Discharge Info Admit Date/Time May 22, 2018 at 16:53 Discharge Date/Time Patient Condition: Stable Consults Dr Johnny Canales Procedures CAT scan abdomen pelvis IMPRESSION: No bowel mass or obstruction is visualized. Diverticulosis. No evidence of diverticulitis, appendicitis or urolithiasis. Cortical renal cysts. Hyperdense cyst upper pole right kidney. No further workup required. Degenerative disease lumbar spine. Vascular calcifications. Hx of Present Illness 87-year-old female admitted with concern of GI bleed. 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 Seen by general surgery, and no urgent intervention required. No active bleed or infection seen. Wants to go home. Patient stable for for discharge. Did not need any blood transfusion. Recommend conservative management and outpatient GI. Referral to colorectal surgery. Patient given phone numbers to visit the specialist. If unable to go home I recommend moving into a boarding care or snf. Assessment and plan 1. GI Bleed, stable transfuse if less than 7. 2. Sveta- rectal Fistula stable outpatient colorectal surgery referral 3. Htn 4. Ckd 5. Failure to thrive, may need further caregiver support/transportation assistance. Consider moving into [id number]. 6. Generalized anxiety disorder, appreciate social service assistance. Home Meds Active Scripts Hydrocortisone Acetate (Anusol-Hc) 25 Mg Supp.rect, 25 MG KS TID PRN for HEMO RROID PAIN/ITCHING for 1 Day, #1 SUPP.RECT Prov:PAWEL RAI MD 05/22/18 Docusate Sodium* (Colace*) 100 Mg Capsule, 200 MG PO BID PRN for CONSTIPATION for 1 Day, #1 CAP Prov:PAWEL RAI MD 05/22/18 Acetaminophen* (Tylenol*) 325 Mg Tablet, 650 MG PO Q6H PRN for .PAIN 1-3 OR TEMP for 1 Day, #1 TAB Prov:PAWEL RAI MD 05/22/18 Reported Medications Cyanocobalamin (Vitamin B-12) (Vitamin B-12) 1,000 Mcg Capsule, 1000 MCG PO DAILY, CAP 05/22/18 Ascorbic Acid (Vitamin C) 500 Mg Tab, 500 MG PO DAILY, TAB 05/22/18 Cholecalciferol* (Vitamin D3*) 1,000 Unit Tablet, 1000 UNIT PO DAILY, TAB 05/22/18 Lidocaine (Lidocaine) 1 Each Adh..patch, 1 EACH TP DAILY 05/22/18 Losartan Potassium* (Losartan Potassium*) 50 Mg Tablet, 50 MG PO DAILY, TAB 05/22/18 Lorazepam* (Lorazepam*) 0.5 Mg Tablet, 0.5 MG PO TID PRN for ANXIETY, TAB 05/22/18 Discontinued Reported Medications Hydrochlorothiazide* (Hydrochlorothiazide*) 25 Mg Tab, 25 MG PO DAILY, #30 TAB 05/22/18 Lactobacillus Combo No.11 (Probiotic) 1 Each Cap.sprink, 1 CAP PO DAILY, CAP 01/05/17 Losartan Potassium* (Losartan Potassium*) 25 Mg Tablet, 25 MG PO DAILY, TAB 01/05/17 Lidocaine (Lidoderm) 1 Each Adh..patch, 1 EACH TP DAILY 01/05/17 Hydrochlorothiazide* (Hydrochlorothiazide*) 25 Mg Tab, 25 MG PO DAILY, #30 TAB 01/05/17 Cyanocobalamin* (Vitamin B12*) 500 Mcg Tab, 1000 MCG PO DAILY, TAB 01/05/17 Cholecalciferol* (Vitamin D3*) 1,000 Unit Tablet, 1000 UNIT PO DAILY, TAB 01/05/17 Ascorbic Acid* (Vitamin C*) 500 Mg Capsule.sa, 500 MG PO DAILY, CAP 01/05/17 Discontinued Scripts Alprazolam* (Xanax*) 0.5 Mg Tab, 0.5 MG PO TID for ANXIETY, #12 TAB Prov:VINEET MARCIAL MD 01/05/17 Cephalexin* (Keflex*) 500 Mg Capsule, 500 MG PO QID for 5 Days, #19 CAP Prov:VINEET MARCIAL MD 01/05/17 Follow-up Plan appt primary 1wk GI Dr Chelsea Kaur 1wk Primary Care Provider Care Physician No Primary Time spent on discharge: > 30 minutes Pending Labs Laboratory Tests Test 05/23/18 10:47 White Blood Count 8.1 10^3/ul (4.8-10.8) Red Blood Count 3.62 10^6/ul (4.20-5.40) Hemoglobin 10.8 g/dl (12.0-16.0) Hematocrit 34.6 % (37.0-47.0) Mean Corpuscular Volume 95.6 fl (82.0-101.0) Mean Corpuscular Hemoglobin 29.8 pg (29.0-33.0) Mean Corpuscular Hemoglobin Concent 31.2 g/dl (32.0-37.0) Red Cell Distribution Width 12.3 % (11.5-14.5) Platelet Count 182 10^3/UL (140-415) Mean Platelet Volume 10.0 fl (7.4-10.4) Immature Granulocytes % 0.400 % (0.001-0.429) Neutrophils % 77.0 % (39.0-77.0) Lymphocytes % 13.2 % (15.0-51.0) Monocytes % 7.5 % (0.0-11.0) Eosinophils % 1.5 % (0.0-7.0) Basophils % 0.4 % (0.0-2.0) Nucleated Red Blood Cells % 0.0 /100WBC (0.0-0.0) Immature Granulocytes # 0.030 10^3/ul (0.0-0.031) Neutrophils # 6.3 10^3/ul (1.6-7.5) Lymphocytes # 1.1 10^3/ul (0.8-2.9) Monocytes # 0.6 10^3/ul (0.3-0.9) Eosinophils # 0.1 10^3/ul (0.0-0.5) Basophils # 0.0 10^3/ul (0.0-0.1) Nucleated Red Blood Cells # 0.0 10^3/ul (0.0-0.0) Prothrombin Time 13.9 Sec (11.9-14.9) Prothrombin Time Ratio 1.1 INR International Normalized Ratio 1.06 Sodium Level 144 mmol/L (135-144) Potassium Level 3.7 mmol/L (3.5-5.1) Chloride Level 107 mmol/L (97-110) Carbon Dioxide Level 29 mmol/L (21-31) Anion Gap 8 (5-13) Blood Urea Nitrogen 34 mg/dl (7-20) Creatinine 1.47 mg/dl (0.44-1.00) Est Glomerular Filtrat Rate mL/min mL/min (>60) Glucose Level 107 mg/dl (70-220) Hemoglobin A1c 5.3 % (0-5.9) Calcium Level 8.9 mg/dl (8.4-10.2) Phosphorus Level 3.2 mg/dl (2.5-4.9) Magnesium Level 2.1 mg/dl (1.7-2.5) Total Bilirubin 0.3 mg/dl (0.2-1.3) Direct Bilirubin 0.00 mg/dl (0.00-0.20) Indirect Bilirubin 0.3 mg/dl (0-1.1) Aspartate Amino Transf (AST/SGOT) 12 IU/L (15-46) Alanine Aminotransferase (ALT/SGPT) 15 IU/L (13-69) Alkaline Phosphatase 53 IU/L (42-121) Total Protein 5.7 g/dl (6.1-8.1) Albumin 3.2 g/dl (3.3-4.9) Globulin 2.50 g/dl (1.3-3.2) Albumin/Globulin Ratio 1.28 Thyroid Stimulating Hormone (TSH) 0.958 MIU/L (0.465-4.680) PAWEL RAI MD May 23, 2018 13:46
[2018-05-23 14:04] VITALS: BP 164/70; PULSE 112; RESP 20
--- NOTE | 2018-05-27 18:24 | RADRPT ---
Vent Rate: 73 bpm RR Interval: 0 msec NV Interval: 172 msec QRS Duration: 92 msec QT Interval: 376 msec QTC Interval: 414 msec P-R-T [place]: -15 - -11 - -1 degrees Normal sinus rhythm with sinus arrhythmia Moderate voltage criteria for LVH, may be normal variant Borderline ECG Electronically Signed By: Dave Garcia
== END 2018-05-23 17:55 | disposition home or self-care (01) | DRG 379 ==
LOC: E/R 12:17 → 2NE 16:53
PROVIDERS: ADMIT Internal Medicine; ATTEND Internal Medicine
DX: K92.2 Gastrointestinal hemorrhage, unspecified (principal); K92.1 Melena; F41.1 Generalized anxiety disorder; I12.9 Hypertensive chronic kidney disease with stage 1 through stage 4 chronic kidney disease, or unspecified chronic kidney disease; N18.9 Chronic kidney disease, unspecified; K60.4 Rectal fistula; R62.7 Adult failure to thrive; Z68.29 Body mass index [BMI] 29.0-29.9, adult
CPT/HCPCS: 36415; 71045; 74176; 80053; 83036; 83735; 84100; 84443; 84484; 85025; 85610; 85730; 86850; 86900; 86901; 87081; 93005; J2060; J2543; J7030; J7040